=== PATIENT | female | born 1960 | race Caucasian/White ===

== ENCOUNTER → 2020-06-21 | Outpatient (CLI) | payer MEDICARE | LOC: COL.RAD 13:18 | DX: Z12.2 Encounter for screening for malignant neoplasm of respiratory organs (principal); R91.1 Solitary pulmonary nodule; F17.210 Nicotine dependence, cigarettes, uncomplicated ==

== ENCOUNTER 2022-05-05 09:33 | Day surgery (SDC) | payer MEDICARE ==
[~2022-05-05] VITALS: Ht 162.6 cm; Wt 54.8 kg
[~2022-05-05 09:33] MED LIST: ALLEGRA 180MG180 MG PO; AZULFIDINE500 MG/TAB PO; MOBIC15 MG PO; NORCO 325 MG-51 TAB PO; PRILOSEC 20MG20 MG PO; RINVOQ ER15 MG PO; SINGULAIR 110 MG/TAB PO; TYLENOL 500MG500 MG PO; ZITHROMAX 250M250 MG PO
[2022-05-05] MEDS ORDERED: ZOLOFT 25MG25 MG PO (11:08)
[2022-05-05] MEDS ORDERED: ULTRAM 50MG TAB50 MG PO (11:09)
[2022-05-05] MEDS ORDERED: CALCIUM ANTAC1000 M2 PO (11:10)
[2022-05-05] MEDS ORDERED: FISH OIL PO (11:11)
[2022-05-05] MEDS ORDERED: FIBER CAP PO (11:12)
[2022-05-05] MEDS ORDERED: TURMERIC500 MG PO (11:12)
[2022-05-05] MEDS ORDERED: PROBIOTIC BLEN1 EACH PO (11:13)
[2022-05-05] MEDS ORDERED: PRIL40 PO ×2 (11:13→11:14)
[2022-05-05] MEDS ORDERED: VITAMINC1000TA PO (11:15)
[2022-05-05] MEDS ORDERED: TYLENOL 8 HR PO (11:15)
[2022-05-05] MEDS ORDERED: CALCIUM (11:16)
[2022-05-05] MEDS ORDERED: ZINC (11:16)
[2022-05-05] MEDS ORDERED: MAGNESIUM (11:16)
[2022-05-05] MEDS ORDERED: NATURAL POTASS595 MG PO (11:17)
[2022-05-05] MEDS ORDERED: LYRICA 75MG CAP75 MG PO (11:19)
[2022-05-05] MEDS ORDERED: ATROVENT I0.2 MG/1 M IH (11:20)
[2022-05-05] MEDS ORDERED: ZYRTEC 10MG10 MG PO (11:21)
[2022-05-05] MEDS ORDERED: OLUMIANT2 MG PO (11:22)
[2022-05-05] MEDS ORDERED: ZANAFLEX2 MG PO (11:22)
[2022-05-05] MEDS ORDERED: DESYREL 50MG50 MG PO (11:23)
[2022-05-05] MEDS ORDERED: VITAMIN B650 MG PO (11:23)
[2022-05-05 11:30] VITALS: BP 89/54; PULSE 68; TEMP 97.8
[2022-05-05 11:34] VITALS: BP 121/90; PULSE 83; TEMP 97.8
[2022-05-05 11:45] VITALS: BP 85/61; PULSE 76
[2022-05-05 12:00] VITALS: BP 92/66; PULSE 76
[2022-05-05 12:10] VITALS: BP 98/67; PULSE 78
--- NOTE | 2022-05-05 12:15 | NUR ---
1130 RETURNS TO ROOM 7 PER CART. AWAKE, ALERT. AMBULATES TO RECLINER WITH STANDBY ASSIST. RESP UNLABORED. DENIES NAUSEA, ABD PAIN OR DYSPHAGIA. VITAL SIGNS OBTAINED. CALL LIGHT AT SIDE. 1145 TOLERATES PO MUFFIN AND COFFEE WITHOUT NAUSEA. SWALLOWS WITHOUT DIFFICULTY 1148 DISCHARGE INSTRUCTIONS REVIEWED. PATIENT VERBALIZES UNDERSTANDING. COPY PROVIDED IN DISCHARGE FOLDER 120 DR. FAIRBANKS HERE TO VISIT WITH PATIENT 1010 DRESSES SELF
== END 2022-05-05 12:15 | disposition home or self-care (01) ==
LOC: SDCO 09:33
DX: K21.9 Gastro-esophageal reflux disease without esophagitis (principal); F17.210 Nicotine dependence, cigarettes, uncomplicated
CPT/HCPCS: J2704; J7120